=== PATIENT | female | born 1990 | race Caucasian/White ===

== ENCOUNTER 2016-12-30 23:58 | Observation (INO) | payer BC ==
--- NOTE | ~2016-12-30 | DS ---
Discharge Summary [facility] [address] [place]. [address] NAME: BORIS CASTILLO : 89 STATUS : DIS Raghavendra PAT#: [id number] AGE: 26 ADM/REG DATE : 12/30/16 MR#: [id number] REPORT SERV DATE: 01/01/17 DICTATED BY: DARRYL GAMBLE DATE: 12/31/16 REPORT STATUS : Draft TRANSCRIBED BY: MODL DATE: 12/31/16 ADMISSION DATE: 12/30/2016 DISCHARGE DATE: 12/31/2016 DISCHARGE DIAGNOSES: 1. Facial cellulitis. 2. Medication allergic reaction. 3. Hypokalemia, resolved. IMAGING: CT face 12/31/2016. Impression, mild left frontal scalp and skin thickening with area of tiny small 0.6 x 0.4 normal subcutaneous lesion incompletely characterized on this exam. Nonspecific soft tissue thickening involving the eyelids bilaterally. No other evidence of subcutaneous abscess or fluid collecting within the face otherwise. Mild mucous retention cyst in the alveolar recess of the maxillary sinus. LABORATORY DATA: WBC 6.6, hemoglobin 13.3, hematocrit 38.3, platelet counts 226. Procalcitonin is less than 0.05. Sodium is 143, potassium is 4.3, chloride is 107, CO2 is 28, BUN is 7, creatinine 0.64, glucose is 98, and calcium is 8.2. COURSE OF HOSPITAL STAY: Please refer to history and physical dictated by Dr. Donald Agrawal on 12/30/2016, for complete admission details. This patient presented to [facility] Emergency Room with facial swelling due to a recent bug bite. The patient states that she had recently been evaluated in [facility], and at that time, was given clindamycin. The patient did state that she has started taking the clindamycin and then noticed additional swelling around her eyes. She came to in [facility] room for evaluation. As noted, imaging above. The patient was started on doxycycline and monitored over the next 24 hours. She is noted to be able to tolerate without difficulty. The patient is stating that she is no longer going to stay in the hospital. She is requesting to go home. We will provide the patient with prescription for doxycycline, and I have advised her to continue to follow up with her primary care. The patient did state understanding. DISCHARGE MEDICATIONS: 1. Doxycycline 100 mg one p.o. twice daily. 2. [place] 5/325 one to two every six hours as needed for pain. 3. Phenergan 25 mg one p.o. every four hours as needed for nausea. This discharge took less than 30 minutes. LIONEL/LEILANI Darryl Gamble NP Discharge Summary [address] [address] NAME: BORIS CASTILLO : 89 STATUS : DIS Raghavendra PAT#: [id number] AGE: 26 ADM/REG DATE : 12/30/16 MR#: [id number] REPORT SERV DATE: 01/01/17 DICTATED BY: DARRYL GAMBLE DATE: 12/31/16 REPORT STATUS : Draft TRANSCRIBED BY: LEILANI DATE: 12/31/16 / [id number] CC: Shivam Salinas Jr, MD
--- NOTE | ~2016-12-30 | HP ---
History And Physical [address] [place]. [address] NAME: BORIS CASTILLO : 89 STATUS : ADM Raghavendra PAT#: [id number] AGE: 26 ADM/REG DATE : 12/30/16 MR#: [id number] REPORT SERV DATE: 12/31/16 DICTATED BY: DONALD AGRAWAL DATE: 12/31/16 REPORT STATUS : Draft TRANSCRIBED BY: MODYamileth DATE: 12/31/16 DATE OF ADMISSION: 12/30/2016 CHIEF COMPLAINT: Bug bite with facial swelling. HISTORY OF PRESENT ILLNESS: This is a 26-year-old lady with no medical history presenting with a bug bite with facial swelling. The patient reports that she noticed what looked like a spider bite on her left forehead Monday night. The patient tried to keep it clean with alcohol and Neosporin but unfortunately the erythema and tenderness surrounding the bite wound only worsened and got bigger with time. It got to a point of extending to the entire forehead and the upper margin of her eyes. The patient also had fevers up to 101.2 along with nausea and vomiting and some head cold symptoms. The patient went to [facility] ER for further evaluation and care. At the ER after a benign evaluation the patient was given clindamycin and was discharged home. The patient did take the clindamycin and unfortunately the patient had a reaction to the clindamycin developing pruritus all over her body. The patient came to our ER for further evaluation and care. In the ER, the patient was found to be afebrile and hemodynamically stable. Initial lab evaluation was all very benign. Given the location of cellulitis and the swelling around her face, Internal Medicine consultation was requested for admission of the patient for observation. REVIEW OF SYSTEMS: The patient had fever up to 101.2. Otherwise, 14-point review of systems reviewed and negative other than mentioned above. MEDICATIONS: 1. Clindamycin 300 mg p.o. four times daily for 14 days. 2. [place] 5/325 one tab p.o. q.6 hours p.r.n. 3. Phenergan 25 mg p.o. q.4 hours p.r.n. ALLERGIES: CASHEW NUT TO WHICH THE PATIENT IS ANAPHYLACTIC. PAST MEDICAL HISTORY: None. PAST SURGICAL HISTORY: 1. Appendectomy. 2. D and C. 3. Bilateral tubal ligation. FAMILY HISTORY: 1. Hypertension. 2. Heart diseases. SOCIAL HISTORY: The patient does not smoke, drink alcohol, or use any illicit drugs. The patient is at home with her boyfriend. The patient is accompanied here in the ER with her History And Physical [address] [place]. [address] NAME: BORIS CASTILLO : 89 STATUS : ADM Raghavendra PAT#: [id number] AGE: 26 ADM/REG DATE : 12/30/16 MR#: [id number] REPORT SERV DATE: 12/31/16 DICTATED BY: DONALD AGRAWAL DATE: 12/31/16 REPORT STATUS : Draft TRANSCRIBED BY: LEILANI DATE: 12/31/16 dad, who is not her biological father. PHYSICAL EXAMINATION: VITAL SIGNS: Temperature 97.2, blood pressure 130/76, pulse 87, respiratory rate is 18, saturating 100% on room air. GENERAL: The patient is alert and oriented x3 with no focal neurologic deficits. The patient is awake, does not appear to be in acute distress, and she is cooperative. NECK: No JVD. No lymphadenopathy. Normal thyroid. CHEST: No midline sternotomy scar and no tenderness to palpation. LUNGS: Clear to auscultation bilaterally with normal respiratory effort on room air. CARDIOVASCULAR: Regular rate and rhythm with no murmurs, rubs, or gallops, and PMI is nondisplaced. ABDOMEN: Soft, nontender with active bowel sounds and no organomegaly. EXTREMITIES: No edema. Normal distal pulses. No calf tenderness. SKIN: Clean, dry, warm, and intact. The patient has some swelling around her forehead and involving her eyes, but the swelling itself is actually not too bad. The patient does have the bite wound niru on her left forehead with minimal swelling. LABORATORY DATA: Sodium is 141, potassium 3.0, chloride 101, BUN 7, creatinine 0.72, glucose 92, calcium 8.5. White blood cell count is 7.8, hemoglobin 13.9, platelets 235. CT of the head showed swelling of left frontal scalp with a small oval hypodensity 7 x 4 mm which may represent a small abscess or fluid collection. There is also moderate subcutaneous graying in the maxillary regions without abscess or focal fluid collection. ASSESSMENT: This is a 26-year-old lady with no medical history presenting with cellulitis of forehead. 1. Cellulitis involving forehead. 2. Medication reaction to clindamycin with generalized pruritus and some worsening of the face shows swelling. 3. Hypokalemia. PLAN: My plan is to admit the patient for observation overnight. The patient was given vancomycin here, but I will tentatively switched to doxycycline to see if she will be able to tolerate it as an outpatient when she gets discharged home. The patient will be given supportive care for the medication reaction with Benadryl. The patient currently appears to be doing quite well with Benadryl along. For hypokalemia, it will be replaced as needed and the patient's labs will be monitored. Standard DVT prophylaxis. The patient is full code at this time. NEETA/LEILANI Donald Agrawal MD History And Physical [address] [address] NAME: BORIS CASTILLO : 89 STATUS : ADM Raghavendra PAT#: [id number] AGE: 26 ADM/REG DATE : 12/30/16 MR#: [id number] REPORT SERV DATE: 12/31/16 DICTATED BY: DONALD AGRAWAL DATE: 12/31/16 REPORT STATUS : Draft TRANSCRIBED BY: LEILANI DATE: 12/31/16 / [id number]
[2016-12-31 00:49] LABS: BASOPHILS 0.4 %; BASOPHILS ABSOLUTE 0.03 10/3/uL (0.0-0.16); EOSINOPHILS ABSOLUTE 0.39 10/3/uL (0.0-0.53); ER CBC TAT 0 Hrs 03 Mins; HEMATOCRIT 39.6 % (36.0-48.0); HEMOGLOBIN 13.9 g/dL (12.0-16.0); IMMATURE GRANULOCYTES 0.1 %; IMMATURE GRANULOCYTES ABSOLUTE 0.01 10/3/uL (0.0-0.11); LYMPHOCYTES 27.6 %; LYMPHOCYTES ABSOLUTE 2.14 10/3/uL (0.67-4.30); MEAN CORPUS HGB CONC 35.1 g/dL (32.0-36.0); MEAN CORPUSCULAR HEMOGLOB 31.4 pg (26.0-34.0); MEAN CORPUSCULAR VOLUME 89.6 fL (80-100); MEAN PLATELET VOLUME 10.9 fL (9.2-13.0); MONOCYTES 7.2 %; MONOCYTES ABSOLUTE 0.56 10/3/uL (0.21-1.20); NEUTROPHILS 59.7 %; NEUTROPHILS ABSOLUTE 4.62 10/3/uL (2.02-8.40); PLATELET COUNT 235 10/3/uL (150-400); RBC DISTRIBUTION WIDTH 12.9 % (12.0-16.0); RED CELL COUNT 4.42 10/6/uL (4.0-5.6); WHITE BLOOD CELLS 7.8 10/3/uL (4.5-10.5)
[2016-12-31 00:54] LABS: MANUAL DIFF NO %
[2016-12-31 01:05] LABS: A/G RATIO 1.3 (0.7-1.9); ALKALINE PHOSPHATASE 54 U/L (45-117); BUN (BLOOD UREA NITROGEN) 7 MG/DL (6-23); CALCIUM, SERUM 8.5 MG/DL (8.5-10.4); CHLORIDE, SERUM 101 MMOL/L (96-112); CO2 (CARBON DIOXIDE) 33 MMOL/L (24-34); CREATININE 0.72 MG/DL (0.55-1.02); GFR AFRICAN AMERICAN 135 ML/MIN (>=60); GFR NON AFRICAN AMERICAN 116 ML/MIN (>=60); GLUCOSE, SERUM 92 MG/DL (60-99); SGOT(AST) 10 U/L (5-40); SGPT(ALT) 20 U/L (5-65); SODIUM, SERUM 141 MMOL/L (135-148); TOTAL BILIRUBIN 0.5 MG/DL (0-1.2)
[2016-12-31] MEDS ORDERED: CLEOCIN300 MG PO (01:59)
[2016-12-31] MEDS ORDERED: PR25 PO (02:00)
[2016-12-31] MEDS ORDERED: NORCO1 TA1 PO (02:00)
[2016-12-31 07:26] LABS: BASOPHILS 0.8 %; BASOPHILS ABSOLUTE 0.05 10/3/uL (0.0-0.16); EOSINOPHILS 7.8 %; EOSINOPHILS ABSOLUTE 0.47 10/3/uL (0.0-0.53); HEMATOCRIT 38.3 % (36.0-48.0); HEMOGLOBIN 13.3 g/dL (12.0-16.0); IMMATURE GRANULOCYTES 0.2 %; IMMATURE GRANULOCYTES ABSOLUTE 0.01 10/3/uL (0.0-0.11); LYMPHOCYTES 34.2 %; LYMPHOCYTES ABSOLUTE 2.05 10/3/uL (0.67-4.30); MEAN CORPUS HGB CONC 34.7 g/dL (32.0-36.0); MEAN CORPUSCULAR HEMOGLOB 31.1 pg (26.0-34.0); MEAN CORPUSCULAR VOLUME 89.5 fL (80-100); MEAN PLATELET VOLUME 10.5 fL (9.2-13.0); MONOCYTES 10.7 %; MONOCYTES ABSOLUTE 0.64 10/3/uL (0.21-1.20); NEUTROPHILS 46.3 %; NEUTROPHILS ABSOLUTE 2.77 10/3/uL (2.02-8.40); PLATELET COUNT 226 10/3/uL (150-400); RBC DISTRIBUTION WIDTH 13.1 % (12.0-16.0); RED CELL COUNT 4.28 10/6/uL (4.0-5.6)
[2016-12-31 07:28] LABS: MANUAL DIFF NO %
[2016-12-31 07:37] LABS: BUN (BLOOD UREA NITROGEN) 7 MG/DL (6-23); CALCIUM, SERUM 8.2 MG/DL (8.5-10.4); CHLORIDE, SERUM 107 MMOL/L (96-112); CREATININE 0.64 MG/DL (0.55-1.02); GFR AFRICAN AMERICAN 144 ML/MIN (>=60); GFR NON AFRICAN AMERICAN 124 ML/MIN (>=60); GLUCOSE, SERUM 98 MG/DL (60-99); SODIUM, SERUM 143 MMOL/L (135-148)
[2016-12-31 07:38] LABS: CO2 (CARBON DIOXIDE) 28 MMOL/L (24-34); POTASSIUM, SERUM 4.3 MMOL/L (3.5-5.3)
[2016-12-31 08:57] LABS: PROCALCITONIN <0.05 ng/mL (<0.5)
[2016-12-31] MEDS ORDERED: DORYX100 MG PO (14:39)
[2016-12-31] MEDS ORDERED: ULTRAM50 PO (14:40)
== END 2016-12-31 14:42 | disposition home or self-care (01) ==
LOC: ER 23:58 → CDU1 23:59
PROVIDERS: Internal Medicine; Nurse Practitioner
DX: L03.211 Cellulitis of face (principal); G43.909 Migraine, unspecified, not intractable, without status migrainosus; Z88.8 Allergy status to other drugs, medicaments and biological substances; Z98.890 Other specified postprocedural states; Z98.51 Tubal ligation status; Z90.49 Acquired absence of other specified parts of digestive tract; Z79.899 Other long term (current) drug therapy
CPT/HCPCS: 70487; 80048; 80053; 84145; 85025; 87040; 96365; 96366; 96372; 96375; 99285; A9270-GY; G0378; J1200; J3370; Q9967